=== PATIENT | female | born 1940 | race Caucasian/White ===

== ENCOUNTER → 2018-10-04 | Outpatient (CLI) | payer MEDICARE, BC | END | disposition home or self-care (01) | LOC: RADCTMAIN 16:14 | PROVIDERS: ATTEND Family Medicine | DX: R06.02 Shortness of breath (principal); R05 Cough | CPT/HCPCS: 82565; 84520 ==

== ENCOUNTER 2019-06-02 08:02 | Day surgery (SDC) | payer MEDICARE, BC ==
[2019-05-31 11:53] VITALS: BMI 37.2
[~2019-06-02 08:02] MED LIST: LACTATED RINGERS 1,000 ML IV SCH; LIDOCAINE 1% 20 ML VIAL (10MG/ML) FOR IV START INTRADERMA PRN
[2019-06-02 08:17] VITALS: TEMP 97.6
[2019-06-02] MEDS ORDERED: LIDOCAINE 1% INJ 10MG/ML (20 ML MDV) ONE (09:11)
[2019-06-02] MEDS ORDERED: PROPOFOL 10 MG/ML 20 ML VIAL IV ONE (09:11)
--- NOTE | 2019-06-02 09:21 | P.PCN ---
Date of Procedure: 06/02/19 Procedure(s) Performed: BRIEF HISTORY: Patient is a 78-year-old, pleasant, white female, scheduled for an upper endoscopy as a part of evaluation of long-standing history of GERD. She is on Protonix 40 mg daily despite which continues remains symptomatic. She is hence scheduled for an upper endoscopy to evaluate further.. PROCEDURE PERFORMED: Esophagogastroduodenoscopy with biopsy PREOPERATIVE DIAGNOSIS: Long-standing history of GERD. IV sedation per anesthesia. PROCEDURE: After informed consent was obtained, the patient was brought into the endoscopy unit. IV sedation was administered by Anesthesia under continuous monitoring. Initially the Olympus GIF-140 video endoscope was inserted into the mouth. Esophagus intubated without any difficulty. It was gradually advanced into the stomach and duodenum and carefully examined. The bulb and the second part of the duodenum appeared normal. The scope at this time was withdrawn to the stomach, adequately insufflated with air, and upon careful examination, mucosa of the antrum, had mild gastritis and biopsies were done from this area. The body, cardia and the fundus appeared normal. The scope was then withdrawn into the esophagus. Moderate size hiatal hernia noted. The GE junction was located at 34 cm from the incisors. There were linear erosions in the distal esophagus consistent with LA grade B reflux esophagitis. The rest of esophagus appeared normal and the patient tolerated the procedure well. IMPRESSION: 1. Mild antral gastritis. 2. Moderate size hiatal hernia 3. Linear erosions in the distal esophagus consistent with LA grade B reflux esophagitis. RECOMMENDATIONS: The findings of this examination were discussed with the patient as well as a family. She was advised to follow with the biopsy results. She will increase the Protonix 40 mg twice daily to be taken half hour before breakfast and dinnertime and follow antireflux measures..
[2019-06-02 09:30] VITALS: PULSE 66; RESP 16
[2019-06-02 09:42] VITALS: BP 110/52
== END 2019-06-02 10:01 | disposition home or self-care (01) ==
LOC: ORWHC2ENDO 08:02
PROVIDERS: ATTEND Internal Medicine Gastroenterology
DX: K29.50 Unspecified chronic gastritis without bleeding (principal); K44.9 Diaphragmatic hernia without obstruction or gangrene; K21.0 Gastro-esophageal reflux disease with esophagitis; K22.10 Ulcer of esophagus without bleeding; I10 Essential (primary) hypertension; E78.5 Hyperlipidemia, unspecified; E07.9 Disorder of thyroid, unspecified; Z79.899 Other long term (current) drug therapy; Z79.890 Hormone replacement therapy; Z79.82 Long term (current) use of aspirin
CPT/HCPCS: 88305; 43239; J2001; J2704

== ENCOUNTER 2022-06-02 01:35 | Emergency (ER) | payer MEDICARE, BC ==
[2022-06-02] MEDS ORDERED: SODIUM CHLORIDE 0.9% 1,000 ML IV STA (01:48)
[2022-06-02] MEDS ORDERED: ONDANSETRON 4 MG/2 ML VIAL IVP STA (01:48)
--- NOTE | 2022-06-02 01:50 | ED ---
Headache HPI - General Chief Complaint: Headache Stated Complaint: Headache Time Seen by Provider: 06/02/22 01:43 Mode of arrival: EMS - Related Data Home Medications Medication Instructions Recorded Confirmed Aspirin [Adult Low Dose Aspirin EC] 81 mg PO HS 12/17/16 06/02/19 Atorvastatin [Lipitor] 40 mg PO HS 12/17/16 06/02/19 Cholecalciferol (Vitamin D3) 2,000 unit PO DAILY 12/17/16 06/02/19 [Vitamin D3] Docusate [Colace] 100 mg PO HS 12/17/16 06/02/19 Levothyroxine Sodium [Synthroid] 75 mcg PO DAILY 12/17/16 06/02/19 Multivitamins, Thera [Multivitamin 1 tab PO DAILY 12/17/16 06/02/19 (formulary)] Pantoprazole [Protonix] 40 mg PO DAILY 12/17/16 06/02/19 amLODIPine [Norvasc] 5 mg PO BID 12/17/16 06/02/19 buPROPion SR [Wellbutrin Sr] 150 mg PO DAILY 12/17/16 06/02/19 Losartan Potassium 100 mg PO DAILY 05/31/19 06/02/19 Vit C/E/Zn/Coppr/Lutein/Zeaxan 1 each PO BID 05/31/19 06/02/19 [Preservision Areds 2 Softgel] Escitalopram [Lexapro] 20 mg PO DAILY 06/01/19 06/02/19 Spironolact/Hydrochlorothiazid 1 each PO DAILY 06/01/19 06/02/19 [Aldactazide 25-25 MG] Allergies Allergy/AdvReac Type Severity Reaction Status Date / Time No Known Allergies Allergy Verified 06/02/22 01:45 Review of Systems ROS Statement: Those systems with pertinent positive or pertinent negative responses have been documented in the HPI. ROS Other: All systems not noted in ROS Statement are negative. Past Medical History Past Medical History: Cancer, GERD/Reflux, Hearing Disorder / Deafness, Hyperlipidemia, Hypertension, Musculoskeletal Disorder, Thyroid Disorder Additional Past Medical History / Comment(s): MELANOMA OF RT CHEEK. HX CATARACTS. BACK PAIN. HX FX RT FIBULA. VERY BEGINNING OF GLAUCOMA. 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 History of Any Multi-Drug Resistant Organisms: None Reported Past Surgical History: Adenoidectomy, Appendectomy, Back Surgery, Cholecystectomy, Hysterectomy, Joint Replacement, Tonsillectomy Additional Past Surgical History / Comment(s): EXC CATARACTS. LT CAROTID ENDARTERECTOMY. MELANOMA EXC RT CHEEK. TOTAL RT KNEE; PARTIAL LT KNEE REPLACEMENT. ORIF RT FIBULA. JAY BUNION, HAMMER TOE SURG. PILONDAL ABSCESS EXC. 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 Past Psychological History: Depression Past Alcohol Use History: None Reported Past Drug Use History: None Reported - Past Family History Brother(s) Family Medical History: Cancer Course Vital Signs 06/02/22 06/02/22 06/02/22 01:42 02:44 03:20 Temperature 97.9 F 97.2 F L Pulse Rate 76 76 76 Respiratory 18 22 16 Rate Blood Pressure 187/117 191/91 103/59 O2 Sat by Pulse 100 100 98 Oximetry Medical Decision Making - Lab Data Result diagrams: 06/02/22 02:09 06/02/22 02:09 Lab Results 06/02/22 06/02/22 Range/Units 02:09 02:09 WBC 16.9 H (3.8-10.6) k/uL RBC 4.42 (3.80-5.40) m/uL Hgb 13.4 (11.4-16.0) gm/dL Hct 40.0 (34.0-46.0) % MCV 90.6 (80.0-100.0) fL MCH 30.3 (25.0-35.0) pg MCHC 33.5 (31.0-37.0) g/dL RDW 13.7 (11.5-15.5) % Plt Count 289 (150-450) k/uL MPV 8.0 Neutrophils % 66 % Lymphocytes % 23 % Monocytes % 6 % Eosinophils % 1 % Basophils % 1 % Neutrophils # 11.2 H (1.3-7.7) k/uL Lymphocytes # 3.9 (1.0-4.8) k/uL Monocytes # 1.0 (0-1.0) k/uL Eosinophils # 0.2 (0-0.7) k/uL Basophils # 0.1 (0-0.2) k/uL Sodium 142 (137-145) mmol/L Potassium 3.6 (3.5-5.1) mmol/L Chloride 107 (98-107) mmol/L Carbon Dioxide 22 (22-30) mmol/L Anion Gap 13 mmol/L BUN 16 (7-17) mg/dL Creatinine 0.89 (0.52-1.04) mg/dL Est GFR (CKD-EPI)AfAm 71 (>60 ml/min/1.73 sqM) Est GFR (CKD-EPI)NonAf 61 (>60 ml/min/1.73 sqM) Glucose 110 H (74-99) mg/dL Calcium 10.0 (8.4-10.2) mg/dL Total Bilirubin 0.5 (0.2-1.3) mg/dL AST 28 (14-36) U/L ALT 25 (4-34) U/L Alkaline Phosphatase 122 (38-126) U/L Total Protein 7.2 (6.3-8.2) g/dL Albumin 4.3 (3.5-5.0) g/dL Disposition Clinical Impression: Headache Disposition: HOME SELF-CARE Instructions (If sedation given, give patient instructions): Acute Headache (ED) Is patient prescribed a controlled substance at d/c from ED?: No Referrals: Yumiko Nagel DO [Primary Care Provider] - 1-2 days Time of Disposition: 06:45
[2022-06-02 02:17] LABS: Basophils # (A) 0.1 k/uL (0-0.2); Basophils % (A) 1 %; Eosinophils # (A) 0.2 k/uL (0-0.7); Eosinophils % (A) 1 %; HGB 13.4 gm/dL (11.4-16.0); Lymphocytes # (A) 3.9 k/uL (1.0-4.8); Lymphocytes % (A) 23 %; MCH 30.3 pg (25.0-35.0); MCHC 33.5 g/dL (31.0-37.0); MCV 90.6 fL (80.0-100.0); Monocytes % (A) 6 %; Neutrophils # (A) 11.2 k/uL (1.3-7.7); Neutrophils % (A) 66 %; Platelet Count 289 k/uL (150-450); RBC 4.42 m/uL (3.80-5.40); RDW 13.7 % (11.5-15.5); WBC 16.9 k/uL (3.8-10.6)
[2022-06-02 02:29] LABS: Potassium 3.6 mmol/L (3.5-5.1)
[2022-06-02 02:30] LABS: Albumin 4.3 g/dL (3.5-5.0); Total Bilirubin 0.5 mg/dL (0.2-1.3); Total Protein 7.2 g/dL (6.3-8.2)
--- NOTE | 2022-06-02 03:13 | CT ---
EXAMINATION TYPE: CT brain wo con DATE OF EXAM: 06/02/2022 COMPARISON: None HISTORY: GRANADOS CT DLP: 1143.2 mGycm Automated exposure control for dose reduction was used. Images obtained of the brain without contrast. There is some mild white matter hypodensity around the lateral ventricles. There is no mass effect or midline shift. There is no sign of intracranial hemorrhage. There is mild cerebral atrophy. Calvariu m is intact. Skull base is intact. IMPRESSION: Mild atrophy and chronic white matter changes. No acute intracranial abnormality.
[2022-06-02 03:25] VITALS: TEMP 97.2
[2022-06-02] MEDS ORDERED: PROCHLORPERAZINE INJ 10 MG/2 ML VIAL IVP STA (03:32)
[2022-06-02 07:50] VITALS: BP 154/74; PULSE 78; RESP 18
== END 2022-06-02 07:50 | disposition home or self-care (01) ==
LOC: EC 01:35
DX: R51.9 Headache, unspecified (principal); K21.9 Gastro-esophageal reflux disease without esophagitis; E78.5 Hyperlipidemia, unspecified; E07.9 Disorder of thyroid, unspecified; F32.A Depression, unspecified; Z79.899 Other long term (current) drug therapy; Z79.82 Long term (current) use of aspirin; Z79.890 Hormone replacement therapy; Z90.89 Acquired absence of other organs; Z90.49 Acquired absence of other specified parts of digestive tract; Z90.710 Acquired absence of both cervix and uterus; Z96.653 Presence of artificial knee joint, bilateral
CPT/HCPCS: 36415; 70450; 80053; 85025; 93005; 96361; 96374; 96375; 99285

== ENCOUNTER 2024-01-20 01:02 | Emergency (ER) | payer MEDICARE, BC ==
[2024-01-20 01:14] VITALS: RESP 20
--- NOTE | 2024-01-20 01:41 | ED ---
Abdominal Pain HPI - General Chief Complaint: Abdominal Pain Stated Complaint: Nausea, Vomiting Time Seen by Provider: 01/20/24 01:05 Source: patient, RN notes reviewed Mode of arrival: ambulatory Limitations: no limitations - History of Present Illness Initial Comments: This is an 83-year-old female who presents to the emergency department for abdominal pain. Reports intermittent cramping abdominal pain this morning. She tried drinking prune juice, but did not finish it because she realized it was . States that the pain felt exactly like constipation pain. Unsure when she last had a bowel movement. She has nausea, but states that she is always nauseous. Denies any vomiting. After she called EMS and before they got there she did have a small bowel movement. States that this was soft and her pain improved afterwards. MD Complaint: abdominal pain - Related Data Home Medications Medication Instructions Recorded Confirmed Levothyroxine Sodium [Synthroid] 75 mcg PO DAILY 12/17/16 06/03/22 Multivitamins, Thera [Multivitamin 1 tab PO DAILY 12/17/16 06/03/22 (formulary)] Losartan Potassium 100 mg PO DAILY 05/31/19 06/03/22 Vit C/E/Zn/Coppr/Lutein/Zeaxan 1 cap PO BID 05/31/19 06/03/22 [Preservision Areds 2 Softgel] Dicyclomine [Bentyl] 10 mg PO TID PRN 06/03/22 06/03/22 Escitalopram [Lexapro] 10 mg PO DAILY 06/03/22 06/03/22 Famotidine [Pepcid] 20 mg PO BID 06/03/22 06/03/22 buPROPion HCL [Wellbutrin XL] 150 mg PO DAILY 06/03/22 06/03/22 Previous Rx's Medication Instructions Recorded Aspirin EC [Ecotrin Low Dose] 81 mg PO BID #60 tab 06/04/22 Atorvastatin [Lipitor] 40 mg PO HS #0 06/04/22 Cholecalciferol [Vitamin D3 (25 50 mcg PO DAILY tab 06/04/22 Mcg = 1000 Iu)] Docusate [Colace] 100 mg PO HS cap 06/04/22 Lactulose 10 - 20 gm PO DAILY PRN #473 ml 01/20/24 Allergies Allergy/AdvReac Type Severity Reaction Status Date / Time No Known Allergies Allergy Verified 01/20/24 01:07 Review of Systems ROS Statement: Those systems with pertinent positive or pertinent negative responses have been documented in the HPI. ROS Other: All systems not noted in ROS Statement are negative. Past Medical History Past Medical History: Cancer, CVA/TIA, GERD/Reflux, Hearing Disorder / Deafness, Hyperlipidemia, Hypertension, Musculoskeletal Disorder, Thyroid Disorder Additional Past Medical History / Comment(s): MELANOMA OF RT CHEEK. HX CATARACTS. BACK PAIN. HX FX RT FIBULA. VERY BEGINNING OF GLAUCOMA. 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 History of Any Multi-Drug Resistant Organisms: None Reported Past Surgical History: Adenoidectomy, Appendectomy, Back Surgery, Cholecystectomy, Hysterectomy, Joint Replacement, Tonsillectomy Additional Past Surgical History / Comment(s): EXC CATARACTS. LT CAROTID ENDARTERECTOMY. MELANOMA EXC RT CHEEK. TOTAL RT KNEE; PARTIAL LT KNEE REPLACEMENT. ORIF RT FIBULA. JAY BUNION, HAMMER TOE SURG. PILONDAL ABSCESS EXC. 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 Past Psychological History: Depression Smoking Status: Former smoker Past Alcohol Use History: None Reported Past Drug Use History: None Reported - Past Family History Brother(s) Family Medical History: Cancer General Exam Limitations: no limitations General appearance: alert, in no apparent distress Head exam: Present: atraumatic, normocephalic, normal inspection Respiratory exam: Present: normal lung sounds bilaterally. Absent: respiratory distress, wheezes, rales, rhonchi, stridor Cardiovascular Exam: Present: regular rate, normal rhythm, normal heart sounds. Absent: systolic murmur, diastolic murmur, rubs, gallop, clicks GI/Abdominal exam: Present: soft, tenderness (LLQ), normal bowel sounds. Absent: distended Neurological exam: Present: alert, oriented X3, CN II-XII intact Psychiatric exam: Present: normal affect, normal mood Skin exam: Present: warm, dry, intact, normal color. Absent: rash Course Vital Signs 01/20/24 01/20/24 01:07 05:21 Temperature 97.6 F 97.9 F Pulse Rate 86 85 Respiratory 20 20 Rate Blood Pressure 179/52 154/79 O2 Sat by Pulse 94 L 94 L Oximetry Medical Decision Making - Medical Decision Making This is an 83 year old female who presents to the emergency department for abdominal pain. Was pt. sent in by a medical professional or institution? @ -No Did you speak to anyone other than the patient for history? @ -No Did you review nursing and triage notes? @ -Yes, and I agree, it is accurate with regards to the patient's symptoms. Were old charts reviewed? @ -No Differential Diagnosis? @ -Differential Abdominal Pain Women: Appendicitis, Cholecystitis, diverticulosis, ischemic bowel, pancreatitis, hepatitis, UTI, gastroenteritis, AAA, incarcerated hernia, bowel obstruction, c onstipation, inflammatory bowel, hepatitis, peptic ulcer disease, splenic infarction, perforated viscus, vulvitis, ovarian torsion, PID, kidney stone, placenta abruption, this is not meant to be an all-inclusive list EKG interpreted by me (3pts min.)? @ -EKG interpreted by me demonstrating the following: Sinus rhythm. Ventricular rate 80 bpm, NV interval 158 ms, QRS duration 87 ms, QTc 411 ms. X-rays interpreted by me (1pt min.)? @ -KUB x-ray obtained. My interpretation identifies stool burden. CT interpreted by me (1pt min.)? @ -Not obtained U/S interpreted by me (1pt. min.)? @ -Not obtained What testing was considered but not performed? (CT, X-rays, U/S, labs)? Why? @ -Lab work including a CBC, CMP, amylase, lipase, and lactic acid, however patient refused due to multiple failed attempts. What meds were considered but not given? Why? @ -None Did you discuss the management of the patient with other professionals? @ -No Did you reconcile home meds? @ -No Was smoking cessation discussed for >3mins.? @ -No Was critical care preformed (if so, how long)? @ -No Were there social determinants of health that impacted care today? How? (Homelessness, low income, unemployed, alcoholism, drug addiction, transportation, low edu. Level, literacy, decrease access to med. care, assisted, rehab)? @ -No Was there de-escalation of care discussed even if they declined? (Discuss DNR or withdrawal of care, Hospice)? @ -No What co-morbidities impacted this encounter? (DM, HTN, Smoking, COPD, CAD, Cancer, CVA, Hep., AIDS, mental health diagnosis, sleep apnea, morbid obesity)? @ -IBS Was patient admitted / discharged? @ -Discharged. We attempted to get lab work on the patient, however after multiple failed attempts, patient refused to continue. KUB x-ray obtained demonstrating stool burden throughout. However, an air fluid level was visualized as well and an early ileus or SBO could not be excluded. This would be unlikely given the description and duration of her symptoms. Fleet enema administered and she produced a small bowel movement. States that her pain improved afterwards and her abdomen felt softer. She was given a dose of Colace in the emergency department. Prescription for lactulose provided. Advised she remain well-hydrated and follow-up with her primary care provider. Patient discharged home in stable condition. She was given strict return parameters given the x-ray findings. Case discussed with ED attending Dr. Diaz. Return precautions reviewed in depth, the patient is instructed to return to the emergency department with any new, worsening, or concerning symptoms. Patient verbalized understanding. Undiagnosed new problem with uncertain prognosis? @ -None Drug Therapy requiring intensive monitoring for toxicity (Heparin, Nitro, Insulin, Cardizem)? @ -None Were any procedures done? @ -None Diagnosis/symptom? @ -Abdominal pain, constipation Acute, or Chronic, or Acute on Chronic? @ -Acute Uncomplicated (without systemic symptoms) or Complicated (systemic symptoms)? @ -Uncomplicated Side effects of treatment? @ -None Exacerbation, Progression, or Severe Exacerbation] @ -Not applicable Poses a threat to life or bodily function? @ -No - Radiology Data Radiology results: report reviewed, image reviewed Disposition Clinical Impression: Abdominal pain, Constipation Disposition: HOME SELF-CARE Instructions (If sedation given, give patient instructions): Constipation (ED), Abdominal Pain (ED) Additional Instructions: Return to the emergency department with any new, worsening, or concerning symptoms. Take the lactulose once daily until you achieve regular bowel movements. Make sure to drink plenty of fluids. Follow up with your primary care provider in 1-2 days. Prescriptions: Lactulose 10 - 20 gm PO DAILY PRN #473 ml PRN Reason: Constipation Is patient prescribed a controlled substance at d/c from ED?: No Referrals: Pk Mosquera MD [Primary Care Provider] - 1-2 days Time of Disposition: 04:24
[2024-01-20] MEDS: NA PHOS,M-B/NA PHOS,DI-BA 133 ML ENEMA RECTAL ONE (03:50)
--- NOTE | 2024-01-20 05:04 | XR ---
EXAM: XR Abdomen, 1 View CLINICAL HISTORY: ITS.REASON XR Reason: abdominal pain TECHNIQUE: Frontal supine view of the abdomen/pelvis. COMPARISON: No relevant prior studies available. IMPRESSION: Air-fluid level seen in the right abdomen, cannot exclude ileus or early bowel obstruction.
[2024-01-20] MEDS: DOCUSATE 100 MG CAP PO STA (05:10)
[2024-01-20 05:23] VITALS: BP 154/79; PULSE 85; TEMP 97.9
== END 2024-01-20 05:23 | disposition home or self-care (01) ==
LOC: EC 01:02
CPT/HCPCS: 74018; 93005; 99284

== ENCOUNTER 2024-05-28 16:09 | Emergency (ER) | payer MEDICARE, BC ==
--- NOTE | 2024-05-28 16:47 | ED ---
Headache HPI - General Chief Complaint: Headache Stated Complaint: fall, hit head no thinners Time Seen by Provider: 05/28/24 16:25 Source: RN notes reviewed, old records reviewed Mode of arrival: ambulatory Limitations: no limitations - History of Present Illness Initial Comments: This is an 83-year-old female with a range of complaints, patient complains of headache which she believes may be related to a fall 3 weeks ago, she did hit her head was seen by EMS and opted not to come to the hospital then. Patient did have a lift assist since then has been having changes in her stool patterns some crampy abdominal pain and right-sided ear pain. Patient is not on blood thinners. Concern for intracranial bleed or neck injury, concern for dehydrati on MD Complaint: headache -: week(s) (3) Onset Description: gradual Location: right, temporal, occipital Severity: moderate Severity scale (1-10): 7 Quality: throbbing, sharp, intermittent Consistency: constant Improves With: nothing Worsens With: none Associated Symptoms: nausea Other Symptoms: other Treatments Prior to Arrival: none - Related Data Home Medications Medication Instructions Recorded Confirmed Levothyroxine Sodium [Synthroid] 75 mcg PO DAILY 12/17/16 06/03/22 Multivitamins, Thera [Multivitamin 1 tab PO DAILY 12/17/16 06/03/22 (formulary)] Losartan Potassium 100 mg PO DAILY 05/31/19 06/03/22 Vit C/E/Zn/Coppr/Lutein/Zeaxan 1 cap PO BID 05/31/19 06/03/22 [Preservision Areds 2 Softgel] Dicyclomine [Bentyl] 10 mg PO TID PRN 06/03/22 06/03/22 Escitalopram [Lexapro] 10 mg PO DAILY 06/03/22 06/03/22 Famotidine [Pepcid] 20 mg PO BID 06/03/22 06/03/22 buPROPion HCL [Wellbutrin XL] 150 mg PO DAILY 06/03/22 06/03/22 Previous Rx's Medication Instructions Recorded Aspirin EC [Ecotrin Low Dose] 81 mg PO BID #60 tab 06/04/22 Atorvastatin [Lipitor] 40 mg PO HS #0 06/04/22 Cholecalciferol [Vitamin D3 (25 50 mcg PO DAILY tab 02/09/23 Mcg = 1000 Iu)] Docusate [Colace] 100 mg PO HS cap 06/04/22 Lactulose 10 - 20 gm PO DAILY PRN #473 ml 01/20/24 Allergies Allergy/AdvReac Type Severity Reaction Status Date / Time No Known Allergies Allergy Verified 05/28/24 16:19 Review of Systems ROS Statement: Those systems with pertinent positive or pertinent negative responses have been documented in the HPI. ROS Other: All systems not noted in ROS Statement are negative. Past Medical History Past Medical History: Cancer, CVA/TIA, GERD/Reflux, Hearing Disorder / Deafness, Hyperlipidemia, Hypertension, Musculoskeletal Disorder, Thyroid Disorder Additional Past Medical History / Comment(s): MELANOMA OF RT CHEEK. HX CATARACTS. BACK PAIN. HX FX RT FIBULA. VERY BEGINNING OF GLAUCOMA. 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 History of Any Multi-Drug Resistant Organisms: None Reported Past Surgical History: Adenoidectomy, Appendectomy, Back Surgery, Cholecystectomy, Hysterectomy, Joint Replacement, Tonsillectomy Additional Past Surgical History / Comment(s): EXC CATARACTS. LT CAROTID ENDARTERECTOMY. MELANOMA EXC RT CHEEK. TOTAL RT KNEE; PARTIAL LT KNEE REPLACEMENT. ORIF RT FIBULA. JAY BUNION, HAMMER TOE SURG. PILONDAL ABSCESS EXC. 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 Past Psychological History: Depression Smoking Status: Former smoker Past Alcohol Use History: None Reported Past Drug Use History: None Reported - Past Family History Brother(s) Family Medical History: Cancer General Exam Limitations: no limitations General appearance: alert, in no apparent distress Head exam: Present: atraumatic, normocephalic, normal inspection Eye exam: Present: normal appearance, PERRL, EOMI. Absent: scleral icterus, conjunctival injection, periorbital swelling ENT exam: Present: normal exam, mucous membranes moist Neck exam: Present: normal inspection. Absent: tenderness, meningismus, lymphadenopathy Respiratory exam: Present: normal lung sounds bilaterally. Absent: respiratory distress, wheezes, rales, rhonchi, stridor Cardiovascular Exam: Present: regular rate, normal rhythm, normal heart sounds. Absent: systolic murmur, diastolic murmur, rubs, gallop, clicks GI/Abdominal exam: Present: soft, normal bowel sounds. Absent: distended, tenderness, guarding, rebound, rigid Extremities exam: Present: normal inspection, full ROM, normal capillary refill. Absent: tenderness, pedal edema, joint swelling, calf tenderness Back exam: Present: normal inspection Neurological exam: Present: alert, oriented X3, CN II-XII intact Psychiatric exam: Present: normal affect, normal mood Skin exam: Present: warm, dry, intact, normal color. Absent: rash Course Vital Signs 05/28/24 16:16 Temperature 98.8 F Pulse Rate 71 Respiratory 16 Rate Blood Pressure 156/79 O2 Sat by Pulse 97 Oximetry - Reevaluation(s) Reevaluation #1: 05/28/24 17:05 Medical records reviewed Reevaluation #2: 05/28/24 18:35 Patient informed of results here in the ER Reevaluation #3: 05/28/24 18:35 Patient symptoms improved here in the ER Reevaluation #4: Was pt. sent in by a medical professional or institution (Dr. PA, CLOUD ENGINEER, urgent care, hospital, or correction...) When possible be specific @ -no Did you speak to anyone other than the patient for history (EMS, parent, family, police, friend...)? What history was obtained from this source @ -no Did you review nursing and triage notes (agree or disagree)? Why? @ -agree Are old charts reviewed (outside hosp., previous admission, EMS record, old EKG, old radiological studies, urgent care reports/EKG's, correction records)? Report findings @ -yes Differential Diagnosis (chest pain, altered mental status, abdominal pain women, abdominal pain men, vaginal bleeding, weakness, fever, dyspnea, syncope, headache, dizziness, GI bleed, back pain, seizure, CVA, palpatations, mental hea lth, musculoskeletal)? @ -prior EKG interpreted by me (3pts min.). @ -yes X-rays interpreted by me (1pt min.). @ -yes negative for acute disease CT interpreted by me (1pt min.). @ -no U/S interpreted by me (1pt. min.). @ -no What testing was considered but not performed or refused? (CT, X-rays, U/S, labs)? Why? @ -none What meds were considered but not given or refused? Why? @ -none Did you discuss the management of the patient with other professionals (professionals i.e. , PA, CLOUD ENGINEER, lab, RT, psych nurse, social service coordinator, vocal music instructor, teacher, guest relation officer, high risk case manager)? Give summary @ -no Was smoking cessation discussed for >3mins.? @ -no Was critical care preformed (if so, how long)? @ -no Were there social determinants of health that impacted care today? How? (Homelessness, low income, unemployed, alcoholism, drug addiction, transportation, low edu. Level, literacy, decrease access to med. care, shelter, rehab)? @ -none Was there de-escalation of care discussed even if they declined (Discuss DNR or withdrawal of care, Hospice)? DNR status @ -no What co-morbidities impacted this encounter? (DM, HTN, Smoking, COPD, CAD, Cancer, CVA, ARF, Chemo, Hep., AIDS, mental health diagnosis, sleep apnea, morbid obesity)? @ -none Was patient admitted / discharged? Hospital course, mention meds given and route, prescriptions, significant lab abnormalities, going to OR and other per tinent info. @ - Undiagnosed new problem with uncertain prognosis? @ -no Drug Therapy requiring intensive monitoring for toxicity (Heparin, Nitro, Insulin, Cardizem)? @ -no Were any procedures done? @ -no Diagnosis/symptom? @ - Acute, or Chronic, or Acute on Chronic? @ -Acute Uncomplicated (without systemic symptoms) or Complicated (systemic symptoms)? @ -Complicated Side effects of treatment? @ -no Exacerbation, Progression, or Severe Exacerbation? @ -exacerbation Poses a threat to life or bodily function? How? (Chest pain, USA, NM, pneumonia, PE, COPD, DKA, ARF, appy, cholecystitis, CVA, Diverticulitis, Homicidal, Suicidal, threat to staff... and all critical care pts) @ -yes Reevaluation #5: Differential Headache: Migraine, tension, cluster, carbon monoxide, central venous thrombosis, pension karma temporal arteritis, acute closure glaucoma, intercranial hemorrhage, mastoiditis, sinusitis, head injury, this is not meant to be an all-inclusive [facility]. Medical Decision Making - Medical Decision Making 83 female to ER with headache likely dehydration underlying decreased urinary output. Patient will not require medication for headache can be discharged home concern for bugs in stool that does not appear to be the case - Lab Data Lab Results 05/28/24 Range/Units 17:28 Influenza Type A (PCR) Not Detected (Not Detectd) Influenza Type B (PCR) Not Detected (Not Detectd) RSV (PCR) Not Detected (Not Detectd) SARS-CoV-2 (PCR) Not Detected (Not Detectd) - Radiology Data Radiology results: report reviewed (CT brain C-spine negative for acute disease), image reviewed Disposition Clinical Impression: Headache Disposition: HOME SELF-CARE Condition: Good Instructions (If sedation given, give patient instructions): Acute Headache (ED) Is patient prescribed a controlled substance at d/c from ED?: No Referrals: Pk Mosquera MD [Primary Care Provider] - 1-2 days Time of Disposition: 18:30
[2024-05-28 18:11] LABS: Influenza A Not Detected (Not Detectd); Influenza B Not Detected (Not Detectd); RSV Not Detected (Not Detectd)
--- NOTE | 2024-05-28 18:24 | CT ---
EXAMINATION TYPE: CT brain cspine wo con DATE OF EXAM: 05/28/2024 5:14 PM COMPARISON: Previous CT study 06/02/2022. CLINICAL INDICATION: Female, 83 years old with history of gao; Fall, head injury without LOC TECHNIQUE: Brain: Multiple axial CT images of the brain were obtained without IV contrast. Cspine: Axial CT images from the skull base to the inferior aspect of T2 we obtained without intraven ous contrast. Coronal and sagittal reformatted images were also reviewed. . CT DLP: 1422.9 mGycm, Automated exposure control for dose reduction was used. FINDINGS: Brain: Extra-axial spaces: No abnormal extra-axial fluid collections. Ventricular system: Dilatation in proportion to cerebral atrophy. Cerebral parenchyma: No acute intraparenchymal hemorrhage or mass effect. Scattered hypoattenuating areas are seen within the white matter. Cerebellum: Unremarkable. Mass effect: No evidence of midline shift. Intracranial vasculature: unremarkable Soft tissues: Normal. Calvarium/osseous structures: No depressed skull fracture. Paranasal sinuses and mastoid air cells: Clear. Visualized orbits: Orbital contents are intact. Cervical spine: Fracture: None. Osseous structures: Demineralized. Multilevel intervertebral disc space loss. Grade 1 anterolisthesis of C4 on C5. Vertebral alignment: Reversal of the normal cervical spine lordotic curvature. No definite acute subl uxation. Spinal canal/Neural Foramina: Multilevel facet arthropathy and uncovertebral hypertrophy in combinati on with posterior disc osteophyte complex these cause very degrees of spinal canal and neural foramin al stenosis. Overall, violation of the spinal canal suboptimal/limited due to streak artifact. Neck s oft tissues: Prevertebral soft tissues are within normal limits. Other: Indeterminate soft tissue mass in the right supraglottic larynx measuring at least 2.3 x 2.0 c m (series 98 image 49) with associated leftward mass effect on the adjacent airway. IMPRESSION: 1. No acute intracranial process. 2. No acute fracture or traumatic subluxation of the cervical spine. 3. Partially calcified soft tissue mass in the right supraglottic region with mass effect on the adj acent larynx. Findings are concerning for malignancy and ENT consultation in addition to outpatient d irect visualization is highly recommended. [facility], Workstation: [id number], 05/28/2024 6:21 PM
[2024-05-28 19:06] VITALS: BP 161/64; PULSE 76; RESP 18; TEMP 98.2
== END 2024-05-28 19:05 | disposition home or self-care (01) ==
LOC: EC 16:09
DX: R51.9 Headache, unspecified (principal); Z86.73 Personal history of transient ischemic attack (TIA), and cerebral infarction without residual deficits; Z87.891 Personal history of nicotine dependence; W01.198A Fall on same level from slipping, tripping and stumbling with subsequent striking against other object, initial encounter
CPT/HCPCS: 70450; 72125; 87636; 99284